=== PATIENT | male | born 1960 | race Two or more races ===

== ENCOUNTER 2016-08-25 23:42 | Inpatient (IN) | payer MEDICAID, OTHER ==
[~2016-08-25] VITALS: Ht 152.4 cm; Wt 81.2 kg
[2016-08-26] MEDS ORDERED: diphenhdrAMINE HCL 50 MG/1 ML VL IV ONE
[2016-08-26] MEDS ORDERED: methylPREDNISolone SOD SUCC 125 MG/2 ML VL IV ONE
[2016-08-26 00:10] LABS: Basophils # (auto) 0 uL; Basophils % (auto) 0.5 % (0.0-2.0); Eosinophils # (auto) 0.4 uL; Eosinophils % (auto) 5.7 % (0.0-7.0); Hematocrit 42.9 % (41.0-53.0); Hemoglobin 14.1 g/dL (13.5-17.5); Lymphocytes # (auto) 2.5 uL; Lymphocytes % (auto) 32.4 % (10.0-50.0); Mean Corpuscular Hemoglobin 31.4 pg (28.0-32.0); Mean Corpuscular Hgb Conc. 32.9 g/dL (32.0-36.0); Mean Corpuscular Volume 95.7 fL (80.0-100.0); Mean Platelet Volume 7.4 fL (7.4-10.4); Monocytes # (auto) 0.6 uL; Monocytes % (auto) 8.3 % (0.0-12.0); Neutrophils # (auto) 4.2 uL; Neutrophils % (auto) 53.1 % (37.0-80.0); Platelet Count (auto) 274 10^3/uL (140-450); Red Cell Distribution Width 13.3 % (11.6-16.0); White Blood Cell 7.7 10^3/uL (4.4-10.8)
[2016-08-26 00:25] LABS: INR 0.99 (0.9-1.15); Partial Thromboplastin Time 28.9 sec (22.64-33.71); Prothrombin Time 10.7 sec (9.37-12.3)
[2016-08-26] MEDS ORDERED: FAMOTIDINE (10MG/ML) 2ML VL IV ONE (00:45)
[2016-08-26] MEDS ORDERED: SODIUM CHLORIDE 0.9% 500 ML IV ONE (00:45)
[2016-08-26 01:07] LABS: Albumin 3.3 g/dL (3.4-5.0); Alkaline Phosphatase 100 U/L (45-117); Anion Gap 8 (5-15); Aspartate Aminotransferase 15 U/L (15-37); BUN/Creatinine Ratio 15.2; Bilirubin, Total 0.3 mg/dL (0.2-1.0); Blood Urea Nitrogen 19 mg/dL (7-18); Calcium 8.8 mg/dL (8.5-10.1); Carbon Dioxide 29 mmol/L (21-32); Chloride 107 mmol/L (98-107); GFR African American 77 mL/min; GFR Non-African American 64 mL/min; Glucose 100 mg/dL (74-106); Magnesium 2.1 mg/dL (1.6-2.6); Potassium 4.4 mmol/L (3.5-5.1); Sodium 144 mmol/L (136-145); Total Protein 7.8 g/dL (6.4-8.2)
[2016-08-26 02:09] LABS: Urine Bilirubin Negative (Negative); Urine Blood Negative /uL (Negative); Urine Color Yellow (Yellow); Urine Glucose Normal (Normal); Urine Ketone Negative (Negative); Urine Nitrite Negative (Negative); Urine RBC 2 /hpf (0 - 3); Urine Urobilinogen Normal (Negative); Urine pH 5.5 (5.0-8.0)
[2016-08-26] MEDS ORDERED: SODIUM CHLORIDE 0.9% 1,000 ML IV SCH (05:40)
[2016-08-26] MEDS ORDERED: ACETAMINOPHEN 325 MG TAB PO ONE (05:45)
[2016-08-26] MEDS ORDERED: diphenhdrAMINE HCL 25 MG CAP PO PRN (05:45)
[2016-08-26] MEDS ORDERED: ACETAMINOPHEN 325 MG TAB PO PRN (05:45)
[2016-08-26] MEDS ORDERED: ONDANSETRON HCL 4 MG/2 ML VIAL IV PRN (05:45)
[2016-08-26] MEDS ORDERED: ENOXAPARIN SOD 40 MG/0.4 ML SYRINGE SC SCH (10:00)
[2016-08-26] MEDS: FAMOTIDINE 20 MG TAB PO SCH ×2 (11:14→21:07)
[2016-08-26] MEDS: NITROFURANTOIN (MONO) 100 mg CAP PO SCH ×2 (11:14→21:06)
[2016-08-26] MEDS: LISINOPRIL 5 MG TAB PO SCH (11:15)
[2016-08-26 12:47] VITALS: BP 144/80
[2016-08-26] MEDS: HYDROcodone-ACET 5/325MG TAB PO PRN (14:12)
[2016-08-26 17:00] VITALS: BP 153/98
[2016-08-26 20:00] VITALS: BP 147/92
[2016-08-26] MEDS: MORPHINE SULF INJ 2 MG/ML SYRINGE 1ML IV PRN (20:18)
[2016-08-26 22:00] VITALS: BP 147/92
[2016-08-27] VITALS (7 sets, daily range): BP systolic 96–147; BP diastolic 55–87
[2016-08-27] MEDS: SODIUM CHLORIDE 0.9% 1,000 ML IV SCH ×2 (04:27→15:44)
[2016-08-27 05:16] LABS: Basophils # (auto) 0 uL; Basophils % (auto) 0.3 % (0.0-2.0); Eosinophils # (auto) 0 uL; Eosinophils % (auto) 0.5 % (0.0-7.0); Hemoglobin 12.6 g/dL (13.5-17.5); Lymphocytes # (auto) 2.3 uL; Lymphocytes % (auto) 26.1 % (10.0-50.0); Mean Corpuscular Hemoglobin 31.9 pg (28.0-32.0); Mean Corpuscular Hgb Conc. 33.2 g/dL (32.0-36.0); Mean Corpuscular Volume 96.1 fL (80.0-100.0); Mean Platelet Volume 7.8 fL (7.4-10.4); Monocytes # (auto) 0.5 uL; Monocytes % (auto) 5.7 % (0.0-12.0); Neutrophils # (auto) 5.8 uL; Neutrophils % (auto) 67.4 % (37.0-80.0); Platelet Count (auto) 256 10^3/uL (140-450); Red Cell Distribution Width 13.8 % (11.6-16.0); White Blood Cell 8.7 10^3/uL (4.4-10.8)
[2016-08-27 05:33] LABS: Albumin 2.8 g/dL (3.4-5.0); BUN/Creatinine Ratio 17.4; Bilirubin, Total 0.3 mg/dL (0.2-1.0); Calcium 8.3 mg/dL (8.5-10.1); Potassium 3.7 mmol/L (3.5-5.1); Total Protein 6.7 g/dL (6.4-8.2)
[2016-08-27] MEDS ORDERED: CIPROFLOXACIN 400MG/200ML 200 ML IV ONE (06:59)
[2016-08-27] MEDS ORDERED: LIDOCAINE HCL 2 %PF INJ 10ML AMP IJ ONE (07:06)
[2016-08-27] MEDS ORDERED: MIDAZOLAM HCL 1MG/1ML-2 ML VIAL ONE (07:06)
[2016-08-27] MEDS ORDERED: fentaNYL CITRATE 100 MCG/2 ML VL ONE (07:06)
[2016-08-27] MEDS ORDERED: PROPOFOL 10 MG/ML 20 ML IV ONE (07:06)
[2016-08-27] MEDS ORDERED: DEXAMETHASONE SOD PHOS 10MG/1ML VIAL INJ IV ONE (07:12)
[2016-08-27] MEDS ORDERED: CLINDAMYCIN IV ONE (07:12)
[2016-08-27] MEDS ORDERED: [UNRECOGNIZED DRUG - OTHER] IV ONE (07:12)
[2016-08-27] MEDS ORDERED: MINERAL OIL LIGHT TOPICAL 25 ML TOP ONE (07:26)
[2016-08-27] MEDS ORDERED: ONDANSETRON HCL 4 MG/2 ML VIAL IV ONE (08:15)
[2016-08-27] MEDS ORDERED: HYDROmorphone HCL 2 MG/ML VL IV ONE (10:00)
[2016-08-27] MEDS ORDERED: LIDOCAINE 2%HCL (LOCAL ANESTH.) INJ 20ML MDV ONE (12:33)
[2016-08-27] MEDS: FAMOTIDINE 20 MG TAB PO SCH ×2 (15:52→21:08)
[2016-08-27] MEDS: LISINOPRIL 5 MG TAB PO SCH (15:52)
[2016-08-27] MEDS: NITROFURANTOIN (MONO) 100 mg CAP PO SCH ×2 (15:52→21:08)
[2016-08-27] MEDS: HYDROcodone-ACET 5/325MG TAB PO PRN (21:09)
[2016-08-28 05:00] VITALS: BP 140/81
[2016-08-28] MEDS: SODIUM CHLORIDE 0.9% 1,000 ML IV SCH ×2 (05:21→11:40)
[2016-08-28] MEDS: HYDROcodone-ACET 5/325MG TAB PO PRN (05:21)
[2016-08-28 07:30] VITALS: BP 147/92
[2016-08-28 08:00] VITALS: BP 147/94
[2016-08-28] MEDS: NITROFURANTOIN (MONO) 100 mg CAP PO SCH (10:34)
[2016-08-28] MEDS: FAMOTIDINE 20 MG TAB PO SCH (10:35)
[2016-08-28] MEDS: MORPHINE SULF INJ 2 MG/ML SYRINGE 1ML IV PRN (10:46)
[2016-08-28] MEDS: LISINOPRIL 5 MG TAB PO SCH (10:46)
[2016-08-28] MEDS ORDERED: LISI-275 PO (11:32)
[2016-08-28 12:00] VITALS: BP 147/87
[2016-08-28 12:10] VITALS: BP 147/94
== END 2016-08-28 14:10 | disposition home or self-care (01) | DRG 443 ==
LOC: ER 23:46 → OVERFLOW 23:47 → TELE-E-ADS 08-26 07:37 → WEST WING 08-26 09:34
PROVIDERS: ADMIT Nurse Practitioner; ATTEND Internal Medicine
PROC: 0T9130Z Drainage of Left Kidney with Drainage Device, Percutaneous Approach (ICD-10-PCS; 2016-08-27)
PROC: 0TJ98ZZ Inspection of Ureter, Via Natural or Artificial Opening Endoscopic (ICD-10-PCS; principal; 2016-08-27 07:12)
DX: N13.2 Hydronephrosis with renal and ureteral calculous obstruction (principal); E44.1 Mild protein-calorie malnutrition; I10 Essential (primary) hypertension; T78.3XXA Angioneurotic edema, initial encounter; T36.0X5A Adverse effect of penicillins, initial encounter; Z88.1 Allergy status to other antibiotic agents; Y92.89 Other specified places as the place of occurrence of the external cause; Z68.35 Body mass index [BMI] 35.0-35.9, adult
CPT/HCPCS: 10022; 36415; 71010; 74000; 74176; 76000; 77012; 80053; 81001; 83735; 84484; 85025; 85610; 85730; 87086; 93005; 96361; 96374; 96375; C1729; J1100; J2250; J2704; J3490

== ENCOUNTER 2016-09-07 23:12 | Emergency (ER) | payer MEDICAID ==
[~2016-09-07] VITALS: Ht 152.4 cm; Wt 72.6 kg
[~2016-09-07 23:12] MED LIST: LISI-275 PO
[2016-09-07 23:37] LABS: Urine Bilirubin Negative (Negative); Urine Blood Negative /uL (Negative); Urine Color Yellow (Yellow); Urine Glucose Normal (Normal); Urine Ketone Negative (Negative); Urine Nitrite Negative (Negative); Urine RBC 1 /hpf (0 - 3); Urine Urobilinogen Normal (Negative); Urine pH 5.5 (5.0-8.0)
[2016-09-08 00:01] LABS: Basophils # (auto) 0 uL; Basophils % (auto) 0.4 % (0.0-2.0); Eosinophils # (auto) 0.4 uL; Eosinophils % (auto) 4.8 % (0.0-7.0); Hematocrit 42.6 % (41.0-53.0); Lymphocytes # (auto) 2.2 uL; Lymphocytes % (auto) 23.2 % (10.0-50.0); Mean Corpuscular Hemoglobin 31.1 pg (28.0-32.0); Mean Corpuscular Hgb Conc. 32.8 g/dL (32.0-36.0); Mean Platelet Volume 7.4 fL (7.4-10.4); Monocytes # (auto) 0.7 uL; Monocytes % (auto) 7.3 % (0.0-12.0); Neutrophils # (auto) 6.1 uL; Neutrophils % (auto) 64.3 % (37.0-80.0); Platelet Count (auto) 332 10^3/uL (140-450); Red Cell Distribution Width 12.8 % (11.6-16.0); White Blood Cell 9.4 10^3/uL (4.4-10.8)
[2016-09-08 00:16] LABS: Albumin 3.3 g/dL (3.4-5.0); BUN/Creatinine Ratio 17.6; Calcium 8.9 mg/dL (8.5-10.1); Potassium 4.2 mmol/L (3.5-5.1)
[2016-09-08 00:18] LABS: Bilirubin, Total 0.3 mg/dL (0.2-1.0); Total Protein 7.6 g/dL (6.4-8.2)
[2016-09-08 08:18] VITALS: BP 124/80
== END 2016-09-08 09:45 | disposition home or self-care (01) ==
LOC: ER 23:15
DX: N39.0 Urinary tract infection, site not specified (principal); I10 Essential (primary) hypertension; Z88.1 Allergy status to other antibiotic agents
CPT/HCPCS: 36415; 80053; 81001; 85025

== ENCOUNTER 2016-10-30 00:21 | Emergency (ER) | payer MEDICAID ==
[~2016-10-30] VITALS: Ht 160 cm; Wt 72.6 kg
[2016-10-30 00:46] VITALS: BP 160/94
[2016-10-30 01:23] LABS: Basophils # (auto) 0 uL; Basophils % (auto) 0.5 % (0.0-2.0); Eosinophils # (auto) 0.4 uL; Eosinophils % (auto) 5.6 % (0.0-7.0); Hematocrit 40.1 % (41.0-53.0); Hemoglobin 13.8 g/dL (13.5-17.5); Lymphocytes # (auto) 2.2 uL; Lymphocytes % (auto) 29.5 % (10.0-50.0); Mean Corpuscular Hgb Conc. 34.4 g/dL (32.0-36.0); Mean Corpuscular Volume 93.1 fL (80.0-100.0); Mean Platelet Volume 7.2 fL (7.4-10.4); Monocytes # (auto) 0.6 uL; Monocytes % (auto) 8.2 % (0.0-12.0); Neutrophils # (auto) 4.3 uL; Neutrophils % (auto) 56.2 % (37.0-80.0); Platelet Count (auto) 280 10^3/uL (140-450); Red Cell Distribution Width 13.7 % (11.6-16.0); White Blood Cell 7.6 10^3/uL (4.4-10.8)
[2016-10-30 01:33] LABS: Urine Bilirubin Negative (Negative); Urine Color Yellow (Yellow); Urine Glucose Normal (Normal); Urine Ketone Negative (Negative); Urine RBC 210 /hpf (0 - 3); Urine Squamous Epithelial Cell FEW /hpf (<5); Urine Urobilinogen Normal (Negative); Urine WBC Clumps PRESENT /hpf (None Seen)
[2016-10-30 01:39] LABS: Urine Blood 2+ /uL (Negative); Urine Nitrite POSITIVE (Negative)
[2016-10-30 02:06] LABS: Albumin 3.7 g/dL (3.4-5.0); Calcium 8.9 mg/dL (8.5-10.1)
[2016-10-30 02:09] LABS: BUN/Creatinine Ratio 16.1
[2016-10-30 02:13] LABS: Bilirubin, Total 0.3 mg/dL (0.2-1.0); Total Protein 8.1 g/dL (6.4-8.2)
== END 2016-10-30 05:15 | disposition left against medical advice (07) ==
LOC: ER 00:21
DX: R10.9 Unspecified abdominal pain (principal); M54.9 Dorsalgia, unspecified; Z87.442 Personal history of urinary calculi; Z53.21 Procedure and treatment not carried out due to patient leaving prior to being seen by health care provider
CPT/HCPCS: 36415; 80053; 81001; 85025

== ENCOUNTER 2020-11-15 05:45 | Emergency (ER) | payer SELFPAY ==
[~2020-11-15] VITALS: Ht 165.1 cm; Wt 63.5 kg
[2020-11-15 05:46] VITALS: BP 145/85
== END 2020-11-15 08:09 | disposition left against medical advice (07) ==
LOC: ER 05:45
DX: R10.31 Right lower quadrant pain (principal); Z53.21 Procedure and treatment not carried out due to patient leaving prior to being seen by health care provider
CPT/HCPCS: 93005

== ENCOUNTER 2021-12-31 07:20 | Inpatient (IN) | payer MEDICAID ==
[~2021-12-31] VITALS: Ht 154.9 cm; Wt 73.2 kg
[2021-12-31 08:43] LABS: Urine Bacteria FEW /hpf (None Seen); Urine Blood TRACE /uL (Negative); Urine Mucus FEW (None Seen); Urine Specific Gravity 1.024 (1.001-1.035); Urine WBC 2 /hpf (0 - 3)
[2021-12-31 08:45] LABS: Basophils # (auto) 0 10 ^3/uL (0-0.2); Basophils % (auto) 0.2 % (0.0-2.0); Eosinophils # (auto) 0 10 ^3/uL (0-0.8); Eosinophils % (auto) 0.1 % (0.0-7.0); Hematocrit 42.6 % (41.0-53.0); Lymphocytes # (auto) 0.8 10 ^3/uL (0.4-5.4); Lymphocytes % (auto) 6.6 % (10.0-50.0); Mean Corpuscular Hgb Conc. 32.8 g/dL (32.0-36.0); Mean Corpuscular Volume 97.4 fL (80.0-100.0); Monocytes # (auto) 0.8 10 ^3/uL (0-1.3); Monocytes % (auto) 6.5 % (0.0-12.0); Neutrophils # (auto) 11.2 10 ^3/uL (1.6-8.6); Neutrophils % (auto) 86.6 % (37.0-80.0); Red Blood Cells 4.38 10^6/uL (4.5-5.90); Red Cell Distribution Width 13.8 % (11.8-14.3); White Blood Cell 12.9 10^3/uL (4.4-10.8)
[2021-12-31] MEDS ORDERED: SODIUM CHLORIDE 0.9% 500 ML IVB ONE (08:45)
[2021-12-31] MEDS ORDERED: SODIUM CHLORIDE 0.9% 1,000 ML IV ONE (08:45)
[2021-12-31] MEDS ORDERED: KETOROLAC TROMETH 30 MG/ML 1ML VIAL IV ONE (08:45)
[2021-12-31] MEDS ORDERED: METOCLOPRAMIDE HCL 5MG/ml INJ 2ml VIAL IV ONE (08:45)
[2021-12-31] MEDS ORDERED: TAMSULOSIN HYDROCHLORIDE 0.4 MG CAP PO ONE (08:45)
[2021-12-31 08:50] LABS: Albumin 3.3 g/dL (3.4-5.0); Calcium 8.9 mg/dL (8.5-10.1); Potassium 3.7 mmol/L (3.5-5.1)
[2021-12-31 08:54] LABS: BUN/Creatinine Ratio 13.3; Bilirubin, Total 1.2 mg/dL (0.2-1.0); Total Protein 7.6 g/dL (6.4-8.2)
[2021-12-31] MEDS ORDERED: cefTRIAXone 1GM/50ML D5W 50 ML IV ONE (14:30)
[2021-12-31] MEDS ORDERED: ONDANSETRON HCL 4 MG/2 ML VIAL IV PRN (16:30)
[2021-12-31] MEDS ORDERED: ACETAMINOPHEN 325 MG TAB PO PRN (16:30)
[2021-12-31] MEDS ORDERED: DOCUSATE SOD 100 MG CAP PO PRN (16:30)
[2021-12-31] MEDS: SODIUM CHLORIDE 0.9% 1,000 ML IV SCH (16:45)
[2021-12-31 19:31] VITALS: BP 145/89
[2021-12-31] MEDS: MORPHINE SULFATE INJ 2 MG/ml SYRG IV PRN (20:12)
[2021-12-31] MEDS: metroNIDAZOLE 500MG/100ML 100 ML IV SCH (21:39)
[2021-12-31 22:00] VITALS: BP 158/80
[2022-01-01] MEDS: metroNIDAZOLE 500MG/100ML 100 ML IV SCH ×3 (05:03→20:18)
[2022-01-01 05:31] LABS: Basophils # (auto) 0 10 ^3/uL (0-0.2); Basophils % (auto) 0.3 % (0.0-2.0); Eosinophils # (auto) 0.1 10 ^3/uL (0-0.8); Eosinophils % (auto) 0.8 % (0.0-7.0); Hematocrit 37.2 % (41.0-53.0); Lymphocytes # (auto) 1.5 10 ^3/uL (0.4-5.4); Lymphocytes % (auto) 13.3 % (10.0-50.0); Mean Corpuscular Hemoglobin 33.7 pg (28.0-32.0); Mean Corpuscular Volume 96.3 fL (80.0-100.0); Monocytes # (auto) 0.7 10 ^3/uL (0-1.3); Monocytes % (auto) 6.4 % (0.0-12.0); Neutrophils % (auto) 79.2 % (37.0-80.0); Red Blood Cells 3.86 10^6/uL (4.5-5.90); Red Cell Distribution Width 13.8 % (11.8-14.3); White Blood Cell 11.4 10^3/uL (4.4-10.8)
[2022-01-01 05:34] VITALS: BP 137/72
[2022-01-01 05:53] LABS: Albumin 2.5 g/dL (3.4-5.0); Calcium 7.9 mg/dL (8.5-10.1); Potassium 3.2 mmol/L (3.5-5.1)
[2022-01-01 05:55] LABS: BUN/Creatinine Ratio 14.3
[2022-01-01 05:58] LABS: Bilirubin, Total 0.9 mg/dL (0.2-1.0); Total Protein 6.2 g/dL (6.4-8.2)
[2022-01-01] MEDS ORDERED: ENOXAPARIN SOD 40 MG/0.4 ML SYRINGE SC SCH (10:00)
[2022-01-01 11:32] LABS: INR 1.09 (0.9-1.15); Partial Thromboplastin Time 39.7 sec (24.6-33.4)
[2022-01-01] MEDS: MORPHINE SULFATE INJ 2 MG/ml SYRG IV PRN ×3 (12:07→20:21)
[2022-01-01 13:00] VITALS: BP 159/90
[2022-01-01] MEDS ORDERED: LISINOPRIL 5 MG TAB PO ONE (13:15)
[2022-01-01] MEDS ORDERED: cefTRIAXone 1GM/50ML D5W 50 ML IV ONE (13:15)
[2022-01-01] MEDS: SODIUM CHLORIDE 0.9% 1,000 ML IV SCH (14:52)
[2022-01-01 17:00] VITALS: BP 166/90
[2022-01-01] MEDS: D5W/SOD CHL 0.45%/KCL 40MEQ 1,000 ML IV SCH (18:02)
[2022-01-01 22:00] VITALS: BP 174/97
[2022-01-02] MEDS: MORPHINE SULFATE INJ 2 MG/ml SYRG IV PRN ×4 (01:47→21:50)
[2022-01-02 05:00] VITALS: BP 165/91
[2022-01-02 05:40] LABS: Basophils # (auto) 0 10 ^3/uL (0-0.2); Basophils % (auto) 0.3 % (0.0-2.0); Eosinophils # (auto) 0.1 10 ^3/uL (0-0.8); Eosinophils % (auto) 1.4 % (0.0-7.0); Hematocrit 37.6 % (41.0-53.0); Hemoglobin 12.7 g/dL (13.5-17.5); Lymphocytes # (auto) 1.4 10 ^3/uL (0.4-5.4); Lymphocytes % (auto) 13.9 % (10.0-50.0); Mean Corpuscular Hemoglobin 32.5 pg (28.0-32.0); Mean Corpuscular Hgb Conc. 33.9 g/dL (32.0-36.0); Monocytes # (auto) 0.6 10 ^3/uL (0-1.3); Monocytes % (auto) 5.9 % (0.0-12.0); Neutrophils # (auto) 7.7 10 ^3/uL (1.6-8.6); Neutrophils % (auto) 78.5 % (37.0-80.0); Red Blood Cells 3.92 10^6/uL (4.5-5.90); Red Cell Distribution Width 13.7 % (11.8-14.3); White Blood Cell 9.8 10^3/uL (4.4-10.8)
[2022-01-02] MEDS: metroNIDAZOLE 500MG/100ML 100 ML IV SCH ×3 (05:56→21:51)
[2022-01-02] MEDS: D5W/SOD CHL 0.45%/KCL 40MEQ 1,000 ML IV SCH ×2 (05:56→17:40)
[2022-01-02 06:14] LABS: Albumin 2.5 g/dL (3.4-5.0); Potassium 3.3 mmol/L (3.5-5.1)
[2022-01-02 06:15] LABS: BUN/Creatinine Ratio 12.2
[2022-01-02 06:18] LABS: Bilirubin, Total 0.7 mg/dL (0.2-1.0); Total Protein 6.8 g/dL (6.4-8.2)
[2022-01-02] MEDS ORDERED: levoFLOXacin 500MG 100 ML IV ONE (07:57)
[2022-01-02] MEDS ORDERED: ROCURONIUM 10MG/ML 10ML VIAL IV ONE (08:18)
[2022-01-02] MEDS ORDERED: MIDAZOLAM HCL 2MG/2ML 2ml VIAL (1mg/ml) ONE (08:18)
[2022-01-02] MEDS ORDERED: fentaNYL CITRATE 100 MCG/2 ML VL ONE (08:18)
[2022-01-02] MEDS ORDERED: BUPIVACAINE 0.5% P/F INJ 10 ML VIAL ONE (08:26)
[2022-01-02] MEDS ORDERED: POVIDONE IODINE 10 % TOPICAL OINT 30GM TOP ONE (08:31)
[2022-01-02] MEDS ORDERED: ONDANSETRON HCL 4 MG/2 ML VIAL ONE (08:41)
[2022-01-02] MEDS ORDERED: LIDOCAINE 2% (LOCAL ANESTH.) PF 5ml SDV ONE (08:41)
[2022-01-02] MEDS ORDERED: PROPOFOL 10 MG/ML 20 ML IV ONE (08:41)
[2022-01-02] MEDS ORDERED: EPINEPHrine HCL 1 MG/1 ML AMP ONE (09:27)
[2022-01-02] MEDS ORDERED: NEOSTIGMINE 1 MG/ML INJ (10mg/10ML VIAL) ONE (09:49)
[2022-01-02] MEDS ORDERED: GLYCOPYRROLATE 0.2 MG/ML 1ML VIAL ONE (09:49)
[2022-01-02] MEDS ORDERED: HYDROmorphone HCL 2 MG/ML VL/or syr IV PRN ×2 (10:15)
[2022-01-02] MEDS ORDERED: ONDANSETRON HCL 4 MG/2 ML VIAL IV PRN (10:15)
[2022-01-02] MEDS: cefTRIAXone 1GM/50ML D5W 50 ML IV SCH (12:30)
[2022-01-02] MEDS: PANTOPRAZOLE 40 MG/10 ML VIAL INJ IV SCH (12:30)
[2022-01-02] MEDS: LISINOPRIL 5 MG TAB PO SCH (12:31)
[2022-01-02] MEDS ORDERED: POTASSIUM CHL 20 Meq TABLET PO ONE (12:45)
[2022-01-02 13:00] VITALS: BP 134/77
[2022-01-02 17:00] VITALS: BP 139/81
[2022-01-02] MEDS: HYDROcodone-ACET 5/325MG TAB PO PRN (17:14)
[2022-01-02 22:00] VITALS: BP 132/88
[2022-01-03] MEDS: HYDROcodone-ACET 5/325MG TAB PO PRN ×3 (02:07→22:52)
[2022-01-03 05:00] VITALS: BP 162/94
[2022-01-03] MEDS: MORPHINE SULFATE INJ 2 MG/ml SYRG IV PRN (05:00)
[2022-01-03] MEDS: metroNIDAZOLE 500MG/100ML 100 ML IV SCH ×3 (05:45→22:51)
[2022-01-03 06:01] LABS: Basophils # (auto) 0 10 ^3/uL (0-0.2); Basophils % (auto) 0.4 % (0.0-2.0); Eosinophils # (auto) 0.1 10 ^3/uL (0-0.8); Eosinophils % (auto) 2.3 % (0.0-7.0); Hemoglobin 11.9 g/dL (13.5-17.5); Lymphocytes # (auto) 1.1 10 ^3/uL (0.4-5.4); Lymphocytes % (auto) 17.8 % (10.0-50.0); Mean Corpuscular Hgb Conc. 33.8 g/dL (32.0-36.0); Mean Corpuscular Volume 97.6 fL (80.0-100.0); Monocytes # (auto) 0.4 10 ^3/uL (0-1.3); Monocytes % (auto) 7.1 % (0.0-12.0); Neutrophils # (auto) 4.4 10 ^3/uL (1.6-8.6); Neutrophils % (auto) 72.4 % (37.0-80.0); Red Blood Cells 3.59 10^6/uL (4.5-5.90); Red Cell Distribution Width 13.8 % (11.8-14.3); White Blood Cell 6.1 10^3/uL (4.4-10.8)
[2022-01-03 06:21] LABS: Potassium 3.9 mmol/L (3.5-5.1)
[2022-01-03 06:30] LABS: Albumin 2.3 g/dL (3.4-5.0); BUN/Creatinine Ratio 10.9; Bilirubin, Total 0.9 mg/dL (0.2-1.0); Calcium 8.2 mg/dL (8.5-10.1); Total Protein 6.4 g/dL (6.4-8.2)
[2022-01-03] MEDS: D5W/SOD CHL 0.45%/KCL 40MEQ 1,000 ML IV SCH ×2 (07:00→20:20)
[2022-01-03] MEDS: LISINOPRIL 5 MG TAB PO SCH (08:37)
[2022-01-03] MEDS: cefTRIAXone 1GM/50ML D5W 50 ML IV SCH (08:37)
[2022-01-03] MEDS: PANTOPRAZOLE 40 MG/10 ML VIAL INJ IV SCH (08:37)
[2022-01-03 09:00] VITALS: BP 156/92
[2022-01-03 13:00] VITALS: BP 159/88
[2022-01-03 17:00] VITALS: BP 127/83
[2022-01-03 17:45] VITALS: BP 127/83
[2022-01-04 03:00] VITALS: BP 155/88
[2022-01-04 04:45] VITALS: BP 166/89
[2022-01-04] MEDS: metroNIDAZOLE 500MG/100ML 100 ML IV SCH ×2 (06:16→13:43)
[2022-01-04] MEDS: HYDROcodone-ACET 5/325MG TAB PO PRN (06:22)
[2022-01-04] MEDS: PANTOPRAZOLE 40 MG/10 ML VIAL INJ IV SCH (08:21)
[2022-01-04] MEDS: D5W/SOD CHL 0.45%/KCL 40MEQ 1,000 ML IV SCH (08:21)
[2022-01-04] MEDS: cefTRIAXone 1GM/50ML D5W 50 ML IV SCH (08:21)
[2022-01-04] MEDS: LISINOPRIL 5 MG TAB PO SCH (08:21)
[2022-01-04] MEDS ORDERED: LISINOPRIL 5 MG TAB PO ONE (08:55)
[2022-01-04 09:00] VITALS: BP 160/88
[2022-01-04] MEDS ORDERED: hydrALAZINE HCL 25 MG TAB PO ONE (13:30)
[2022-01-04 14:52] VITALS: BP_SYST 167; BP_SYST 175; BP_DIAS 88; BP_DIAS 89
[2022-01-04] MEDS ORDERED: cloNIDine HCL 0.1 MG TAB PO ONE (15:00)
[2022-01-04 16:09] VITALS: BP 152/82
== END 2022-01-04 17:11 | disposition home or self-care (01) | DRG 710 ==
LOC: ER 07:20 → OVERFLOW 16:23 → EAST 18:21
PROVIDERS: ADMIT Internal Medicine; ATTEND Internal Medicine
PROC: 0FT44ZZ Resection of Gallbladder, Percutaneous Endoscopic Approach (ICD-10-PCS; principal; 2022-01-02 08:38)
DX: A41.9 Sepsis, unspecified organism (principal); K80.00 Calculus of gallbladder with acute cholecystitis without obstruction; K76.0 Fatty (change of) liver, not elsewhere classified; N13.2 Hydronephrosis with renal and ureteral calculous obstruction; E66.9 Obesity, unspecified; I10 Essential (primary) hypertension; Z20.822 Contact with and (suspected) exposure to COVID-19; N21.0 Calculus in bladder; Z88.8 Allergy status to other drugs, medicaments and biological substances; Z68.30 Body mass index [BMI] 30.0-30.9, adult; Z87.442 Personal history of urinary calculi
CPT/HCPCS: 36415; 71045; 74176; 76705; 78226; 80053; 81001; 85025; 85610; 85730; 86850; 86900; 86901; 87070; 87075; 87077; 87186; 87205; 93005; 96361; 96365; 96375; C9113; G0378; J0171; J0696; J1885; J1956; J2001; J2250; J2405; J2704; J3490

== ENCOUNTER 2022-07-18 22:03 | Emergency (ER) | payer MEDICAID ==
[~2022-07-18] VITALS: Ht 165.1 cm; Wt 68.2 kg
[2022-07-19 07:58] VITALS: BP 167/98
== END 2022-07-19 07:41 | disposition left against medical advice (07) ==
LOC: ER 22:03
DX: H92.01 Otalgia, right ear (principal); Z53.21 Procedure and treatment not carried out due to patient leaving prior to being seen by health care provider

== ENCOUNTER 2024-07-11 22:10 | Emergency (ER) | payer MEDICAID ==
[~2024-07-11] VITALS: Ht 154.9 cm; Wt 72.7 kg
[2024-07-11 22:55] LABS: Urine Bacteria None Seen /hpf (None Seen)
[2024-07-11 23:06] LABS: Urine Blood Negative /uL (Negative); Urine Clarity Clear (Clear); Urine Color Light-Yellow (Yellow); Urine Protein, UAD Negative (Negative); Urine Specific Gravity 1.024 (1.001-1.035); Urine Squamous Epithelial Cell None Seen /hpf (<5); Urine Urobilinogen Normal (Negative); Urine WBC 1 /HPF (0-3)
--- NOTE | 2024-07-11 23:10 | ED.PDOC ---
General HPI Comments 64 year old male presents to the ED with a chief complaint of painful urination onset 1 day. Patient states he began experiencing RT flank pain radiating to his low back 5 days ago, pain improved. Yesterday, patient began experiencing painful urination as well as penile pain, LT leg cramping, dizziness. PMHx kidney stones, HTN. Patient denies shortness of breath, chest pain, abdominal pain, nausea, vomiting, diarrhea, headache, fevers, chills, hematuria. No other symptoms or modifying factors present at this time. Chief Complaint: Urinary Time Seen by MD: 22:48 Primary Care Provider: NONE Reviewed notes: Medications, Allergies Allergies: Coded Allergies: Amoxicillin (Verified Allergy, Unknown, 08/25/16) Penicillins (Verified Allergy, Unknown, 07/18/22) Home Meds Active Scripts Ibuprofen (Ibuprofen) 800 Mg Tab, 1 TAB PO Q8HP PRN, #30 TAB 1 Refill prn pain. take with food. Prov:LORE MARION MD 07/12/24 Lisinopril (Lisinopril) 5 Mg Tab, 5 MG PO DAILY, #30 TAB Prov:JOSEE COTTRELL MD 08/28/16 Information Source: Patient Mode of Arrival: Ambulatory Severity: Moderate Timing: Days Duration: Since onset Prehospital treatment: None Onset: Spontaneous Symptoms: Dysuria, Other (penile pain) History of: Kidney stone Location: (R) Flank Penile discharge: None Modifying factors: None associated signs and symptoms: Flank Pain, Other (penile pain ) Past Medical History PAST MEDICAL HISTORY: HTN, Kidney Stones Surgical History: Cholecystectomy Family History Family History: Unobtainable Social History Smoker: Non-Smoker Alcohol: Denies ETOH Use Drugs: Denies Drug Use Lives In: Home Constitutional: denies: chills, diaphoresis, fatigue, fever, malaise, sweats, weakness, others EENTM: denies: blurred vision, double vision, ear bleeding, ear discharge, ear drainage, ear pain, ear ringing, eye pain, eye redness, hearing loss, mouth pain, mouth swelling, nasal discharge, nose bleeding, nose congestion, nose pain, photophobia, tearing, throat pain, throat swelling, voice changes, others Respiratory: denies: cough, hemoptysis, orthopnea, SOB at rest, shortness of breath, SOB with excertion, stridor, wheezing, others Cardiovascular: denies: chest pain, dizzy spells, diaphoresis, Dyspnea on exertion, edema, irregular heart beat, left arm pain, lightheadedness, palpitations, PND, syncope, others Gastrointestinal: denies: abdomen distended, abdominal pain, blood streaked bowels, constipated, diarrhea, dysphagia, difficulty swallowing, hematemesis, melena, nausea, poor appetite, poor fluid intake, rectal bleeding, rectal pain, vomiting, others Genitourinary: reports: dysuria, flank pain, pain (penile); denies: burning, frequency, hematuria, incontinence, penile discharge, penile sore, testicle pain, testicle swelling, urgency, others Neurological: denies: dizziness, fainting, headache, left sided numbness, left sided weakness, numbness, paresthesia, pre-existing deficit, right sided numbness, right sided weakness, seizure, speech problems, tingling, tremors, weakness, others Musculoskeletal: reports: back pain; denies: gout, joint pain, joint swelling, muscle pain, muscle stiffness, neck pain, others Integumetry: denies: bruises, change in color, change in hair/nails, dryness, laceration, lesions, lumps, rash, wounds, others Allergic/Immunocompromised: denies: Difficulty Healing, Frequent Infections, Hives, Itching, others Hematologic/Lymphatic: denies: anemia, blood clots, easy bleeding, easy bruising, swollen glands, others Endocrine: denies: excessive hunger, excessive sweating, excessive thirst, excessive urination, flushing, intolerance to cold, intolerance to heat, unexplained weight gain, unexplained weight loss, others Psychiatric: denies: anxiety, bipolar disorder, depression, hopeless, panic disorder, schizophrenia, sleepless, suicidal, others All Other Systems: Reviewed and Negative Physical Exam General Appearance: No Apparent Distress HEENT: Other (moist mucous membranes) Neck: Full Range of Motion, Normal Inspection Respiratory: Lungs Clear, No Accessory Muscle Use, No Respiratory Distress, Normal Breath Sounds Cardiovascular: No Edema, No JVD, Regular Rate/Rhythm Breast Exam: Deferred Gastrointestinal: Soft, Tenderness (suprapubic and bilateral flank) Genitalia: Deferred Pelvic: Deferred Rectal: Deferred Extremities: Normal inspection, Normal range of motion, Non-tender, No pedal edema Neurologic: Alert (oriented x 4), Normal Affect, Normal Mood, Other (ambulatory without difficulty. no gross focal deficit) Cerebellar Function: NOT DONE Reflexes: NOT DONE Skin: Dry, Normal Color, Warm Lymphatic: NOT DONE Was a procedure done? Was a procedure done?: No Differential Diagnosis Kidney stone (Female): Musculoskeletal pain, Renal failure, Urinary obstruction, Urolithiasis Kidney stone (Male): Pyelonephritis, Renal failure, Urinary obstruction, Urolithiasis, Renal infarction, Urinary tract infection Penile/Scrotal: STD, UTI Urinary Problem (Male): Bladder Outlet, Bladder Obstruction, Urolithiasis, UTI X-Ray, Labs, Meds, VS Vital Signs Date Time Temp Pulse Resp B/P (MAP) Pulse Ox O2 Delivery O2 Flow Rate FiO2 07/12/24 00:32 98.2 99 16 146/89 (108) 98 98.2 07/11/24 23:32 87 16 97 Room Air* 0 21 07/11/24 23:28 98.1 98 16 152/87 (108) 98 98.1 07/11/24 22:20 98.9 67 18 181/96 (124) 97 Lab Test 07/11/24 23:14 07/11/24 22:54 Range/Units White Blood Count 6.5 4.4-10.8 10^3/uL Red Blood Count 4.46 L 4.5-5.90 10^6/uL Hemoglobin 14.4 13.5-17.5 g/dL Hematocrit 42.4 41.0-53.0 % Mean Corpuscular Volume 95.1 80.0-100.0 fL Mean Corpuscular Hemoglobin 32.3 H 28.0-32.0 pg Mean Corpuscular Hemoglobin Concent 34.0 32.0-36.0 g/dL Red Cell Distribution Width 14.1 11.8-14.3 % Platelet Count 236 140-450 10^3/uL Mean Platelet Volume 7.1 6.9-10.8 fL Neutrophils (%) (Auto) 48.0 37.0-80.0 % Lymphocytes (%) (Auto) 37.3 10.0-50.0 % Monocytes (%) (Auto) 8.9 0.0-12.0 % Eosinophils (%) (Auto) 5.0 0.0-7.0 % Basophils (%) (Auto) 0.8 0.0-2.0 % Neutrophils # (Auto) 3.1 1.6-8.6 10 ^3/uL Lymphocytes # (Auto) 2.4 0.4-5.4 10 ^3/uL Monocytes # (Auto) 0.6 0-1.3 10 ^3/uL Eosinophils # (Auto) 0.3 0-0.8 10 ^3/uL Basophils # (Auto) 0 0-0.2 10 ^3/uL Nucleated Red Blood Cells 0.0 % Sodium Level 141 136-145 mmol/L Potassium Level 3.9 3.5-5.1 mmol/L Chloride Level 107 98-107 mmol/L Carbon Dioxide Level 26 20-31 mmol/L Anion Gap 8 5-15 Blood Urea Nitrogen 21 9-23 mg/dL Creatinine 1.19 0.700-1.30 mg/dL Glomerular Filtration Rate Calc 68 >90 mL/min BUN/Creatinine Ratio 17.6 10.0-20.0 Serum Glucose 95 74-106 mg/dL Calcium Level 9.9 8.7-10.4 mg/dL Urine Color Light-yellow Yellow Urine Clarity Clear Clear Urine pH 6.0 5.0-9.0 Urine Specific [place] 1.024 1.001-1.035 Urine Protein Negative Negative Urine Ketones Negative Negative Urine Blood Negative Negative /uL Urine Nitrite Negative Negative Urine Bilirubin Negative Negative Urine Urobilinogen Normal Negative mg/dL Urine Leukocyte Esterase Negative Negative /uL Urine RBC 1 0 - 3 /hpf Urine Microscopic WBC 1 0-3 /HPF Urine Squamous Epithelial Cells None seen <5 /hpf Urine Bacteria None seen None Seen /hpf Urine Glucose Normal Normal mg/dL Chlamydia trachomatis (DIMAS) Pending Neisseria gonorrhoeae (DIMAS) Pending ORDERING PHYSICIAN: LORE MARION MD PROCEDURE(s): ABPL - CT AB PEL WO CON-NO ORAL OR IV REASON: bilat flank pain, suprapubic pain ORDER NUMBER(s): [id number], ACCESSION NUMBER(s): [id number] Exam: CT CT AB PEL WO CON-NO ORAL OR IV History: bilat flank pain, suprapubic pain Comparison Study: CT abdomen/pelvis 12/31/2021 Technique: Multidetector spiral CT of the abdomen was performed from lung bases to pubic symphysis. Imaging was performed without IV contrast. Axial, coronal and sagittal multiplanar reformats were obtained from the axial data set by the technologist. Radiation Dose : 1. Abdomen/Pelvis: CTDIvol [CTDIvol] mGy, DLP [DLP] mGy*cm. Findings: Evaluation of solid organs is limited due to lack of intravenous contrast use. Lung Bases: No abnormality demonstrated. Liver: Liver is normal in size. No focal lesions. Gallbladder and Biliary Tree: Interval cholecystectomy. No evidence of biliary ductal dilatation. Spleen: No abnormality demonstrated. Pancreas: No abnormality demonstrated. Adrenal Glands: No abnormality demonstrated. Kidneys: No abnormality demonstrated. No evidence of renal calculus or hydroureteronephrosis. Bladder: Largely nondistended. A calculus measuring 8 mm is noted on the left side of the urinary bladder in the region of the left UVJ. Bowel: Stomach appears grossly unremarkable. No dilated or thick-walled loops of large or small bowel noted. Appendix is not visualized. Ascites: Absent Lymphadenopathy: No evidence of lymphadenopathy. Abdominal Wall and Mesentery: Unremarkable. Vasculature: Unremarkable given lack of intravenous contrast. Pelvic Organs: Unremarkable. Musculoskeletal: No bony lesions or fracture. IMPRESSION: 1. No acute abdominal or pelvic findings. 2. Bladder calculus. Interval cholecystectomy. Radiation optimization: All CT scans at this facility use at least one of these dose optimization techniques: automated exposure control mA and/or kV adjustment per patient size (includes targeted exams where dose is matched to clinical indication) or iterative reconstruction. ATED BY: VITALIY BOWLING MD DICTATED DATE/TIME: 07/11/242339 SIGNED BY: VITALIY BOWLING MD SIGNED DATE/TIME: 07/11/242339 CC: X-Ray, Labs, Meds, VS Comment 64-year-old male with a history of hypertension and kidney stones presenting complaining of possibly passing a kidney stone, associated with flank and penile pain Vitals remarkable for BP 181/96 exam remarkable for bilat flank and suprapubic mild tenderness CT abdomen and pelvis IMPRESSION: 1. No acute abdominal or pelvic findings. 2. Bladder calculus. Interval cholecystectomy. CBC, basic metabolic panel and urinalysis unremarkable for any abnormality of acute significance. GC and chlamydia pending Patient treated with the following in the ED: [place] 5/325 mg p.o. On re-evaluation, patient states pain has improved, vitals were stable. Abdominal exam is benign. Patient advised regarding workup findings, my impression, treatment plan and follow-up recommendations. He expressed understanding and agreed. Rx ibuprofen Time of 1ST Reevaluation: 23:18 Reevaluation 1ST: Unchanged Patient Education/Counseling: Diagnosis, Treatment, Prognosis Family Education/Counseling: No Family Present Additional Information The following tests were ordered, and results were reviewed by me: UA, CBC, BMP, CT AB PEL WO CON, CHLAMYDIA/ GC AMPLIFICATION I reviewed and agreed with the following test results read by other providers: CT AB PEL WO CON I discussed treatment and results with medical personnel and: patient Departure 1 Departure Time of Disposition: 00:14 Impression: Primary Impression: Bladder calculus Disposition: HOME / SELF CARE / HOMELESS Condition: Stable Additional Instructions: Your blood and urine tests were normal. Your CT scan showed there is a stone inside your bladder. I have prescribed pain medication. Follow-up with your primary doctor in 1-2 days. e-Prescriptions Ibuprofen (Ibuprofen) 800 Mg Tab 1 TAB PO Q8HP PRN, #30 TAB 1 Refill prn pain. take with food. Prov: LORE MARION MD 07/12/24 Discharged With: Self Critical Care Note Critical Care Time?: No Stability Stability form required: No I personally scribed for LORE MARION MD ([email or web address]) on 07/11/24 at 23:10. Electronically submitted by Bridget Greene ([email or web address]). I personally scribed for LORE MARION MD ([email or web address]) on 07/11/24 at 23:20. Electronically submitted by Bridget Greene ([email or web address]). I personally scribed for LORE MARION MD ([email or web address]) on 07/11/24 at 23:45. Electronically submitted by Bridget Greene ([email or web address]). LORE MARION MD Jul 11, 2024 23:10
[2024-07-11 23:30] LABS: Basophils # (auto) 0 10 ^3/uL (0-0.2); Basophils % (auto) 0.8 % (0.0-2.0); Eosinophils # (auto) 0.3 10 ^3/uL (0-0.8); Hematocrit 42.4 % (41.0-53.0); Hemoglobin 14.4 g/dL (13.5-17.5); Lymphocytes # (auto) 2.4 10 ^3/uL (0.4-5.4); Lymphocytes % (auto) 37.3 % (10.0-50.0); Mean Corpuscular Hemoglobin 32.3 pg (28.0-32.0); Mean Corpuscular Volume 95.1 fL (80.0-100.0); Monocytes # (auto) 0.6 10 ^3/uL (0-1.3); Monocytes % (auto) 8.9 % (0.0-12.0); Neutrophils # (auto) 3.1 10 ^3/uL (1.6-8.6); Platelet Count (auto) 236 10^3/uL (140-450); Red Blood Cells 4.46 10^6/uL (4.5-5.90); Red Cell Distribution Width 14.1 % (11.8-14.3); White Blood Cell 6.5 10^3/uL (4.4-10.8)
[2024-07-11] MEDS: HYDROcodone-ACET 5/325MG TAB PO ONE (23:30)
[2024-07-11 23:32] VITALS: PULSE 87; RESP 16; O2SAT 97
[2024-07-11 23:41] LABS: Potassium 3.9 mmol/L (3.5-5.1); Sodium 141 mmol/L (136-145)
[2024-07-11 23:42] LABS: Anion Gap 8 (5-15); Carbon Dioxide 26 mmol/L (20-31)
--- NOTE | 2024-07-11 23:42 | DVH ---
Exam: CT CT AB PEL WO CON-NO ORAL OR IV History: bilat flank pain, suprapubic pain Comparison Study: CT abdomen/pelvis 12/31/2021 Technique: Multidetector spiral CT of the abdomen was performed from lung bases to pubic symphysis. Imaging was performed without IV contrast. Axial, coronal and sagittal multiplanar reformats were ob tained from the axial data set by the technologist. Radiation Dose : 1. Abdomen/Pelvis: CTDIvol [CTDIvol] mGy, DLP [DLP] mGy*cm. Findings: Evaluation of solid organs is limited due to lack of intravenous contrast use. Lung Bases: No abnormality demonstrated. Liver: Liver is normal in size. No focal lesions. Gallbladder and Biliary Tree: Interval cholecystectomy. No evidence of biliary ductal dilatation. Spleen: No abnormality demonstrated. Pancreas: No abnormality demonstrated. Adrenal Glands: No abnormality demonstrated. Kidneys: No abnormality demonstrated. No evidence of renal calculus or hydroureteronephrosis. Bladder: Largely nondistended. A calculus measuring 8 mm is noted on the left side of the urinary kalen dder in the region of the left UVJ. Bowel: Stomach appears grossly unremarkable. No dilated or thick-walled loops of large or small bowel noted. Appendix is not visualized. Ascites: Absent Lymphadenopathy: No evidence of lymphadenopathy. Abdominal Wall and Mesentery: Unremarkable. Vasculature: Unremarkable given lack of intravenous contrast. Pelvic Organs: Unremarkable. Musculoskeletal: No bony lesions or fracture. IMPRESSION: 1. No acute abdominal or pelvic findings. 2. Bladder calculus. Interval cholecystectomy. Radiation optimization: All CT scans at this facility use at least one of these dose optimization mike hniques: automated exposure control mA and/or kV adjustment per patient size (includes targeted exam s where dose is matched to clinical indication) or iterative reconstruction.
[2024-07-11 23:43] LABS: Calcium 9.9 mg/dL (8.7-10.4)
[2024-07-11 23:47] LABS: Glucose 95 mg/dL (74-106)
[2024-07-11 23:48] LABS: BUN/Creatinine Ratio 17.6 (10.0-20.0); Blood Urea Nitrogen 21 mg/dL (9-23)
[2024-07-11 23:54] LABS: Chloride 107 mmol/L (98-107)
[2024-07-12] MEDS ORDERED: HYDR-4902 PO (00:16)
[2024-07-12] MEDS ORDERED: IBUP-1456 PO (00:19)
[2024-07-12 00:32] VITALS: BP 146/89; PULSE 99; RESP 16; TEMP 98.2; O2SAT 98
[2024-07-13 11:06] LABS: Chlamydia Trachomatis, NAA Negative (Negative); Neisseria gonorrhoeae, NAA Negative (Negative)
== END 2024-07-12 00:38 | disposition home or self-care (01) ==
LOC: ER 22:10
DX: N21.0 Calculus in bladder (principal); I10 Essential (primary) hypertension; R42 Dizziness and giddiness; Z87.442 Personal history of urinary calculi; Z90.49 Acquired absence of other specified parts of digestive tract; Z88.0 Allergy status to penicillin; Z88.1 Allergy status to other antibiotic agents
CPT/HCPCS: 36415; 74176; 80048; 81001; 85025